=== PATIENT | male | born 1985 | race Asian ===

== ENCOUNTER 2020-12-21 22:25 | Emergency (ER) | payer OTHER ==
[~2020-12-21] VITALS: Ht 177.8 cm; Wt 83.8 kg
[2020-12-21 22:33] VITALS: BP 141/87
--- NOTE | 2020-12-21 22:55 | NUR ---
randi swab walked to lab at this time
--- NOTE | 2020-12-21 23:13 | NUR ---
PT EDUCATED ON ISOLATION AND DC INSTRUCTIONS, VERBALIZED UNDERTSANDING.
== END 2020-12-21 23:20 | disposition home or self-care (01) ==
LOC: ED 22:30
DX: J06.9 Acute upper respiratory infection, unspecified (principal); Z20.822 Contact with and (suspected) exposure to COVID-19
CPT/HCPCS: 99283; U0003; U0005